=== PATIENT | female | born 1975 | race Caucasian/White ===

== ENCOUNTER 2016-11-28 08:19 | Emergency (ER) | payer SELFPAY ==
[2016-11-28] MEDS ORDERED: IPRATROPIUM/ALBUTEROL (0.5MG/3MG) NEB INH ONE (08:29)
[2016-11-28] MEDS ORDERED: PREDNISONE 20 MG TAB PO ONE (08:29)
--- NOTE | 2016-11-28 08:35 | Emergency Department Record ---
History of Present Illness - General Chief Complaint: Cough Stated Complaint: COUGH Time Seen by Provider: 11/28/16 08:22 Source: Patient Mode of Arrival: Ambulatory Limitations: No limitations - History of Present Illness Initial Comments: 41 yo smoker presents with about one day of cough with yellow sputum and subjective fevers. No nausea, vomiting or diarrhea. No rash. She has a past history of vocal cord cancer S/P radiation. She denies a history of asthma or COPD but she has required breathing treatments with URI type symptoms in the past. She is in the process of stopping smoking. No other current symptoms. Her last treatment for the vocal cord cancer was april. She has had recent and consistent follow up with no signs of recurrence or complications. PCP [facility]. Complaint: Cough, Fever -: Hour(s) (24) Severity: Moderate Improves With: Nothing Worsens With: Nothing Associated Symptoms: Cough Treatments Prior to Arrival: None - Related Data Previous Rx's Medication Instructions Recorded Albuterol Sulfate [Proventil Hfa] 1 - 2 puff INH .EVERY 4-6 HOURS 11/28/16 PRN #1 inhaler Azithromycin [Zithromax] 250 mg PO DAILY #4 tablet 11/28/16 Ipratropium/Albuterol Sulfate 1 - 2 puff IH QID #1 inh 11/28/16 [Combivent] Prednisone [Prednisone 20Mg] 20 mg PO BID #10 tab 11/28/16 Allergies Allergy/AdvReac Type Severity Reaction Status Date / Time meperidine HCl [From Demerol] AdvReac Severe VOMITING Verified 11/28/16 08:33 Review of Systems Constitutional: Reports: Fever. Denies: Chills, Malaise, Weakness Eyes: Denies: Eye discharge, Eye pain, Photophobia ENT: Reports: Congestion. Denies: Ear pain, Throat pain Respiratory: Reports: Cough, Wheezes. Denies: Hemoptysis, Stridor Cardiovascular: Denies: Chest pain, Palpitations, Syncope Endocrine: Denies: Fatigue Gastrointestinal: Denies: Abdominal pain, Diarrhea, Nausea, Vomiting Genitourinary: Denies: Dysuria, Urgency Musculoskeletal: Denies: Arthralgia, Back pain, Myalgia, Neck pain Skin: Denies: Bruising, Change in color, Rash Neurological: Denies: Headache, Numbness, Weakness Psychiatric: Denies: Anxiety Hematological/Lymphatic: Denies: Easy bleeding, Easy bruising Physical Exam - General General Appearance: Alert, Oriented x3, Cooperative, No acute distress, Other ( Non labored, no conversational dyspnea, chronic whispery voice due to cancer treatment) Limitations: No limitations - Head Head exam: Normal inspection - Eye Eye exam: Normal appearance, PERRL. negative: Conjunctival injection, Periorbital swelling - ENT ENT exam: Normal exam, Mucous membranes moist, Normal external ear exam, Normal orophraynx, TM's normal bilaterally Ear exam: Normal external inspection. negative: External canal tenderness Nasal Exam: Normal inspection. negative: Discharge, Sinus tenderness Mouth exam: Normal external inspection, Tongue normal Throat exam: Normal inspection. negative: Tonsillar erythema, Tonsillar exudate - Neck Neck exam: Normal inspection, Full ROM. negative: Lymphadenopathy, Tenderness - Respiratory Respiratory exam: Decreased breath sounds, Prolonged expiratory (mild), Rhonchi (few scattered). negative: Accessory muscle use, Respiratory distress - Cardiovascular Cardiovascular Exam: Regular rate, Normal rhythm, Normal heart sounds - GI/Abdominal GI/Abdominal exam: Soft. negative: Tenderness - Rectal Rectal exam: Deferred - exam: Deferred - Extremities Extremities exam: Normal inspection. negative: Tenderness - Back Back exam: Reports: Normal inspection. Denies: CVA tenderness (R), CVA tenderness (L) - Neurological Neurological exam: Alert, Oriented X3. negative: Altered - Psychiatric Psychiatric exam: Normal affect. negative: Agitated, Anxious - Skin Skin exam: Dry, Intact, Normal color, Warm Course - Reevaluation(s) Reevaluation #1: Orders placed for Duoneb, Flu swab, Prednisone, CXR. 11/28/16 08:37 Reevaluation #2: The patient was checked after the Duoneb. She felt improved. RT provided spacer for inhaler as well. 11/28/16 09:00 The influenza panel was negative for A and B 11/28/16 09:09 The CXR was reviewed by me No acute infiltrate noted She will be treated with breathing treatments, steroids and antibiotics given her smoking history as this is similar to a COPD exacerbation even though she has no formal diagnosis of COPD. 11/28/16 09:15 Reevaluation #3: CXR read as no acute cardio pulmonary disease, bi apical scarring, old healed rib fractures, possible subglottic narrowing from radiation. The patient had a recent scope and has close follow up every 2 months. 11/28/16 09:27 Disposition Disposition: Discharge Clinical Impression: Bronchitis Disposition: Home, Self-Care Condition: (1) Good Instructions: Acute Bronchitis (ED), Wheezing (ED) Additional Instructions: Return in the next 24 hours if not improving Return sooner if worse Zithromax daily PRednisone twice daily Combivent every 4 hours as needed Prescriptions: Albuterol Sulfate [Proventil Hfa] 1 - 2 puff INH .EVERY 4-6 HOURS PRN #1 inhaler PRN Reason: Difficulty In Breathing Azithromycin [Zithromax] 250 mg PO DAILY #4 tablet Ipratropium/Albuterol Sulfate [Combivent] 1 - 2 puff IH QID #1 inh Prednisone [Prednisone 20Mg] 20 mg PO BID #10 tab Forms: Patient Portal Access Time of Disposition: 09:13 Quality - Quality Measures Quality Measures: N/A - Blood Pressure Screening Does Patient Have Any of the Following: No Blood Pressure Classification: Normal BP Reading Systolic Measurement: 108 Diastolic Measurement: 78 Screening for High Blood Pressure: < Normal BP, F/U Not Required > [G8783]
[2016-11-28 09:02] LABS: INFLUENZA A NEGATIVE (NEGATIVE); INFLUENZA B NEGATIVE (NEGATIVE)
[2016-11-28] MEDS ORDERED: AZITHROMYCIN 500 MG TABLET PO ONE (09:13)
--- NOTE | 2016-11-28 14:20 | RADIOLOGY REPORT ---
EXAM: CHEST, TWO VIEWS HISTORY: COUGH FOR ONE DAY. DIFFICULTY IN BREATHING. VOCAL CORD CARCINOMA WITH RADIATION THERAPY. TECHNIQUE: Upright PA and lateral views of the chest were obtained. Comparison: Two view chest radiographic examination dated 01/27/14. FINDINGS: The heart is not enlarged and the pulmonary vasculature is nondilated. Mild biapical lung scarring is present. The lungs and pleural spaces are otherwise clear. There is new deformity involving the lateral aspects of the right fifth and sixth ribs likely relating to healed fractures. There are mild degenerative changes of the spine. There is equivocal symmetric narrowing of the immediate subglottic airway. IMPRESSION: 1. NO RADIOGRAPHIC EVIDENCE OF ACUTE CARDIOPULMONARY DISEASE. 2. MINOR BIAPICAL LUNG SCARRING. 3. DEFORMITIES OF THE LATERAL RIGHT FIFTH AND SIXTH RIBS SUGGESTED LIKELY RELATING TO OLD HEALED FRACTURES. THESE ARE NEW SINCE 01/27/14. 4. APPARENT SLIGHT SYMMETRIC NARROWING OF THE IMMEDIATE SUBGLOTTIC AIRWAY. THIS MAY RELATE TO POST RADIATION THERAPY. JOB NUMBER: [id number] [facility]
== END 2016-11-28 09:25 | disposition home or self-care (01) ==
LOC: ER 08:19
DX: J20.9 Acute bronchitis, unspecified (principal); F17.210 Nicotine dependence, cigarettes, uncomplicated
CPT/HCPCS: 99283; 99284; 87400; 71020; 94640; J7512

== ENCOUNTER 2016-12-04 22:42 | Emergency (ER) | payer SELFPAY ==
[2016-12-04] MEDS: IPRATROPIUM/ALBUTEROL (0.5MG/3MG) NEB INH ONE (22:50)
[2016-12-04] MEDS: ALBUTEROL SULFATE (0.083%) 2.5 MG/3 ML NEB INH ONE (23:03)
[2016-12-04] MEDS: METHYLPREDNISOLONE PF 125MG/VIAL IVP ONE (23:04)
--- NOTE | 2016-12-04 23:17 | Emergency Department Record ---
History of Present Illness - General Chief Complaint: Shortness of breath Stated Complaint: TIA Time Seen by Provider: 12/04/16 22:54 Source: Patient Mode of Arrival: Ambulatory Limitations: No limitations - History of Present Illness Initial Comments: pt has sob, wheezing and cough. pt was here 6 days ago and was given a z-pack and steroids both of which ran out yesterday. she felt better but now feels worse. pt has a hx of vocal cord ca which is closely watched. she had radiation MD Complaint: Cough, Shortness of breath Onset/Timin -: Hour(s) Severity: Mild Severity scale (1-10): 4 Quality: Other Consistency: Constant Improves With: Bronchodilators, Rest, Upright position Worsens With: Coughing, Inspiration Known History Of: Other Associated Symptoms: Denies other symptoms Treatments Prior to Arrival: Bronchodilator - Related Data Home Oxygen Therapy: No Home Medications Medication Instructions Recorded Confirmed Last Taken Albuterol Sulfate [Proair Hfa] 1 puff INH ASDIR 12/04/16 12/04/16 Unknown Previous Rx's Medication Instructions Recorded Prednisone [Deltasone] 20 mg PO ASDIR #7 tablet 12/05/16 Allergies Allergy/AdvReac Type Severity Reaction Status Date / Time meperidine HCl [From Demerol] AdvReac Severe VOMITING Verified 12/04/16 22:45 Travel Screening - Travel/Exposure Within Last 30 Days Have you traveled within the last 30 days?: No - Travel/Exposure Within Last Year Have you traveled outside the [place] in the last year?: No - Additonal Travel Details Have you been exposed to anyone with a communicable illness?: No - Travel Symptoms Symptom Screening: None Review of Systems Reviewed: No additional complaints except as noted below Constitutional: Reports: As per HPI. Denies: Chills, Fever, Malaise, Night sweats, Weakness, Weight change Eyes: Reports: As per HPI. Denies: Eye discharge, Eye pain, Photophobia, Vision change ENT: Reports: As per HPI. Denies: Congestion, Dental pain, Ear pain, Epistaxis , Hearing loss, Throat pain Respiratory: Reports: As per HPI. Denies: Cough, Dyspnea, Hemoptysis, Stridor, Wheezes Cardiovascular: Reports: As per HPI. Denies: Arrhythmia, Chest pain, Dyspnea on exertion, Edema, Murmurs, Orthopnea, Palpitations, Paroxysmal nocturnal dyspnea, Rheumatic Fever, Syncope Endocrine: Reports: As per HPI. Denies: Fatigue, Heat or cold intolerance, Polydipsia, Polyuria Gastrointestinal: Reports: As per HPI. Denies: Abdominal pain, Constipation, Diarrhea, Hematemesis, Hematochezia, Melena, Nausea, Vomiting Genitourinary: Reports: As per HPI. Denies: Abnormal menses, Discharge, Dyspareunia, Dysuria, Frequency, Hematuria, Incontinence, Retention, Urgency Musculoskeletal: Reports: As per HPI. Denies: Arthralgia, Back pain, Gout, Joint swelling, Myalgia, Neck pain Skin: Reports: As per HPI. Denies: Bruising, Change in color, Change in hair/ nails, Lesions, Pruritus, Rash Neurological: Reports: As per HPI. Denies: Abnormal gait, Confusion, Headache, Numbness, Paresthesias, Seizure, Tingling, Tremors, Vertigo, Weakness Psychiatric: Reports: As per HPI. Denies: Anxiety, Auditory hallucinations, Depression, Homicidal thoughts, Suicidal thoughts, Visual hallucinations Hematological/Lymphatic: Reports: As per HPI. Denies: Anemia, Blood Clots, Easy bleeding, Easy bruising, Swollen glands Past Medical History - SOCIAL HISTORY Smoking Status: Light tobacco smoker (<10/day) Drug Use: Occasional - RESPIRATORY Hx Bronchitis: Yes - CARDIOVASCULAR Hx Cardio Disorders: No - NEURO Hx Neuro Disorders: No - GI Hx GI Disorders: No - Hx Genitourinary Disorders: No - ENDOCRINE Hx Diabetes: No Hx Thyroid Disease: No - MUSCULOSKELETAL Hx Musculoskeletal Disorders: No - PSYCH Hx Psych Problems: No - HEMATOLOGY/ONCOLOGY Hx Cancer: Yes (01/2016) Hx Radiation Therapy: (04/28/2016) Family Medical History Any Significant Family History?: No Hx Cancer: Father Hx HTN: Father, Mother Physical Exam - General General Appearance: Alert, Oriented x3, Cooperative, Mild distress - Head Head exam: Normal inspection - Eye Eye exam: Normal appearance, PERRL, EOMI Pupils: Normal accommodation - ENT ENT exam: Normal exam, Mucous membranes moist, Normal external ear exam, Normal orophraynx, TM's normal bilaterally Ear exam: Normal external inspection. negative: External canal tenderness Nasal Exam: Normal inspection. negative: Discharge, Sinus tenderness Mouth exam: Normal external inspection, Tongue normal, Other (hoarse) Teeth exam: Normal inspection. negative: Dental caries Throat exam: Normal inspection. negative: Tonsillar erythema, Tonsillar exudate - Neck Neck exam: Normal inspection, Full ROM. negative: Tenderness - Respiratory Respiratory exam: Wheezes. negative: Respiratory distress - Cardiovascular Cardiovascular Exam: Regular rate, Normal rhythm, Normal heart sounds - GI/Abdominal GI/Abdominal exam: Soft, Normal bowel sounds. negative: Tenderness - Rectal Rectal exam: Deferred - exam: Deferred - Extremities Extremities exam: Normal inspection, Full ROM, Normal capillary refill. negative: Tenderness - Back Back exam: Reports: Normal inspection, Full ROM. Denies: Muscle spasm, Rash noted, Tenderness - Neurological Neurological exam: Alert, CN II-XII intact, Normal gait, Oriented X3 - Psychiatric Psychiatric exam: Normal affect, Normal mood - Skin Skin exam: Dry, Intact, Normal color, Warm Course Vital Signs 12/04/16 12/04/16 22:50 23:03 Temperature 97.9 F Pulse Rate 73 84 Pulse Rate [ 80 Pulse Ox Probe] Respiratory 20 20 Rate Blood Pressure 143/99 [Left Arm] Pulse Ox 96 - Reevaluation(s) Reevaluation #1: 12/05/16 00:01 pt feels much better. no wheezing Disposition Disposition: Discharge Clinical Impression: Reactive airway disease with acute exacerbation Qualifiers: Asthma severity: moderate persistent Qualified Code(s): J45.41 - Moderate persistent asthma with (acute) exacerbation Disposition: Home, Self-Care Condition: (1) Good Instructions: Wheezing (ED), Reactive Airways Disease (ED) Additional Instructions: follow up with family doctor. return sooner if worse. Prescriptions: Prednisone [Deltasone] 20 mg PO ASDIR #7 tablet Forms: Patient Portal Access Quality - Quality Measures Quality Measures: N/A - Blood Pressure Screening Does Patient Have Any of the Following: No Blood Pressure Classification: Hypertensive Reading Systolic Measurement: 143 Diastolic Measurement: 99 Screening for High Blood Pressure: < Pre-Hypertensive BP, F/U Documented > [ G8950] Pre-Hypertensive Follow-up Interventions: Follow-up with rescreen every year.
--- NOTE | 2016-12-05 13:19 | RADIOLOGY REPORT ---
EXAM: CHEST, TWO VIEWS HISTORY: DIFFICULTY IN BREATHING. TECHNIQUE: Frontal and lateral views of the chest were performed. FINDINGS: The heart size is normal. The lung rodriguez are clear. The osseous structures are normal. IMPRESSION: NEGATIVE CHEST EXAMINATION. JOB NUMBER: [id number] [facility]
== END 2016-12-05 00:23 | disposition home or self-care (01) ==
LOC: ER 22:42
DX: J45.41 Moderate persistent asthma with (acute) exacerbation (principal)
CPT/HCPCS: 71020; 94640; 96374; 99284; J2930; J7613

== ENCOUNTER 2016-12-25 13:04 | Emergency (ER) | payer SELFPAY ==
--- NOTE | 2016-12-25 13:33 | Emergency Department Record ---
History of Present Illness - General Chief Complaint: Cough Stated Complaint: COUGH,SORE THROAT,VOMITTING,DIARRHEA,NO ENERGY Time Seen by Provider: 12/25/16 13:19 Source: Patient Mode of Arrival: Ambulatory Limitations: No limitations - History of Present Illness Initial Comments: The patient is here due to a cough and congestion with mild SOB for one day. She has recently been diagnosed with COPD and has stopped smoking recently also. Today she has had mild vomiting and diarrhea but is better now and is no longer nauseated. The patient does have a hx of recentl vocal chord CA S/P XRT. She has a chronic raspy voice and stridorous breathing and is at baseline presently. The patient also has been very fatigued. MD Complaint: Cough, Nasal congestion, Rhinorrhea, Sore throat Onset/Timin -: Month(s) Severity scale (1-10): 6 Consistency: Constant - Related Data Previous Rx's Medication Instructions Recorded Doxycycline Monohydrate [Mondoxyne 100 mg PO BID #20 capsule 12/25/16 Nl] Ondansetron [Zofran Odt] 4 mg SL .Q4-6H PRN #12 tab.rapdis 12/25/16 Prednisone [Prednisone 20Mg] 20 mg PO ASDIR #15 tab 12/25/16 Allergies Allergy/AdvReac Type Severity Reaction Status Date / Time meperidine HCl [From Demerol] AdvReac Severe VOMITING Unverified 12/13/16 09:46 Travel Screening - Travel/Exposure Within Last 30 Days Have you traveled within the last 30 days?: No Review of Systems Constitutional: Reports: Malaise. Denies: Chills, Fever Eyes: Denies: Eye discharge ENT: Reports: Congestion Respiratory: Reports: Cough, Dyspnea, Stridor (chronic.). Denies: Hemoptysis, Wheezes Cardiovascular: Denies: Chest pain Past Medical History - SOCIAL HISTORY Smoking Status: Former smoker - RESPIRATORY Hx Respiratory Disorders: Yes Hx Bronchitis: Yes Hx COPD: Yes - CARDIOVASCULAR Hx Cardio Disorders: No - NEURO Hx Neuro Disorders: No - GI Hx GI Disorders: No - Hx Genitourinary Disorders: No - ENDOCRINE Hx Endocrine Disorders: No - MUSCULOSKELETAL Hx Musculoskeletal Disorders: No - PSYCH Hx Psych Problems: No - HEMATOLOGY/ONCOLOGY Hx Hematology/Oncology Disorders: Yes Hx Cancer: Yes (01/2016) Hx Radiation Therapy: (04/28/2016) Family Medical History Any Significant Family History?: Yes Hx Cancer: Father Hx HTN: Father, Mother Physical Exam - General General Appearance: Alert, Oriented x3, Cooperative, No acute distress - Head Head exam: Atraumatic, Normocephalic, Normal inspection - Eye Eye exam: Normal appearance, PERRL - ENT ENT exam: negative: Normal exam, TM's normal bilaterally (The TM's are very difficult to visualize due to angled canals and cerumen.) Throat exam: Tonsillar erythema. negative: Normal inspection, Tonsillomegaly, Tonsillar exudate - Neck Neck exam: Normal inspection, Full ROM. negative: Lymphadenopathy, Meningismus , Tenderness - Respiratory Respiratory exam: Normal lung sounds bilaterally. negative: Accessory muscle use, Chest wall tenderness, Decreased breath sounds, Respiratory distress - Cardiovascular Cardiovascular Exam: Regular rate, Normal rhythm, Normal heart sounds - GI/Abdominal GI/Abdominal exam: Soft, Normal bowel sounds. negative: Tenderness - Extremities Extremities exam: Normal inspection, Full ROM, Normal capillary refill. negative: Tenderness - Neurological Neurological exam: Alert. negative: Motor sensory deficit Course Vital Signs 12/25/16 13:10 Temperature 98.2 F Pulse Rate 91 H Respiratory 22 Rate Blood Pressure 130/87 Pulse Ox 97 - Reevaluation(s) Reevaluation #1: The patient is doing better at this time. Her nausea has resolved and she is drinking normally. She also denies any SOB or TIA presently and is speaking in full sentences with no difficulty. 12/25/16 14:22 Reevaluation #2: The patient is doing very well at this time. She denies any TIA or SOB and is up walking with no difficulty breathing or dyspnea. I did explain to the patient her xrays do not demonstrate any significant abnormality but her Liver tests do have a very slightly elevated alk phos and Tbili. The patient is instructed to F/U with her PCP for recheck of the lab work. 12/25/16 14:35 Medical Decision Making - Data Complexity MDM Data: Labs Ordered and/or Reviewed, X-Ray Ordered and/or Reviewed - Lab Data Result diagrams: 12/25/16 13:35 12/25/16 13:35 - Radiology Data Radiology results: Report reviewed (CXR: Neg ST Neck: Neg.) Disposition Disposition: Discharge Clinical Impression: Reactive airway disease with acute exacerbation Qualifiers: Asthma severity: mild Asthma persistence: intermittent Qualified Code(s): J45.21 - Mild intermittent asthma with (acute) exacerbation Disposition: Home, Self-Care Condition: (1) Good Instructions: COPD (Chronic Obstructive Pulmonary Disease) (ED) Additional Instructions: Please continue your regular medicines and add the Doxycycline and Prednisone as directed. Please use the Zofran for nausea. Please see Denise Curry for recheck later this week and see Dr. Zavala also for your throat issue. Prescriptions: Doxycycline Monohydrate [Mondoxyne Nl] 100 mg PO BID #20 capsule Ondansetron [Zofran Odt] 4 mg SL .Q4-6H PRN #12 tab.rapdis PRN Reason: Nausea Prednisone [Prednisone 20Mg] 20 mg PO ASDIR #15 tab Forms: Patient Portal Access Time of Disposition: 14:39 Quality - Quality Measures Quality Measures: N/A - Blood Pressure Screening View Details: Yes Does Patient Have Any of the Following: No Blood Pressure Classification: Pre-Hypertensive BP Reading Systolic Measurement: 123 Diastolic Measurement: 87 Screening for High Blood Pressure: < Pre-Hypertensive BP, F/U Documented > [ G8950] Pre-Hypertensive Follow-up Interventions: Referral to alternative/primary care provider.
[2016-12-25] MEDS: IPRATROPIUM/ALBUTEROL (0.5MG/3MG) NEB INH ONE (13:34)
[2016-12-25 13:44] LABS: BASO % 0.4 % (0-6); EOS % 0.9 % (0-6); GRAN % 77.6 % (47-80); HEMATOCRIT 40.5 % (35.0-47.0); HEMOGLOBIN 13.5 gm/dl (11.6-16.0); LYMPH % 13.5 % (16-45); MEAN CELL VOLUME 86.5 fl (81-97); MEAN CORPUSCULAR HEMOGLOBIN 28.8 pg (27-33); MEAN CORPUSCULAR HGB CONC 33.3 g/dl (32-36); MEAN PLATELET VOLUME 9.7 fl (7.4-10.4); MONO % 7.6 % (0-9); PLATELET COUNT 287 K/uL (130-400); RED BLOOD COUNT 4.68 M/uL (3.80-5.40); RED CELL DISTRIBUTION WIDTH 12.4 % (11.5-14.5); WHITE BLOOD COUNT W/O DIFF 7.9 K/uL (4.2-12.2)
[2016-12-25 14:10] LABS: ALB/GLOB RATIO 1.3 (1.1-1.8); ALBUMIN 4.3 g/dL (4.0-5.0); ALKALINE PHOSPHATASE 117 U/L (35-104); ALT/SGPT 9 U/L (<33); AST/SGOT 12 U/L (10.0-35.0); BLOOD UREA NITROGEN 7 mg/dL (6-20); CREATININE 0.5 mg/dL (0.5-0.9); EST GLOMERULAR FILTRATION RATE > 60 mL/min; GLUCOSE,RANDOM 90 mg/dL (74-109); TOTAL PROTEIN 7.6 g/dL (6.6-8.7)
[2016-12-25] MEDS: ONDANSETRON 4 MG ODT TABLET SL ONE (14:17)
[2016-12-25] MEDS: PREDNISONE 20 MG TAB PO ONE (14:27)
[2016-12-25] MEDS: DOXYCYCLINE HYCLATE 100 MG CAPSULE PO ONE (14:27)
--- NOTE | 2016-12-27 11:01 | RADIOLOGY REPORT ---
EXAM: CHEST, TWO VIEWS HISTORY: NECK PAIN, SORE THROAT, COUGH. TECHNIQUE: PA and lateral views of the chest were obtained. Comparison: Two view chest 12/04/16. FINDINGS: The heart is not enlarged. The lungs appear expanded with no acute infiltrate seen. No pleural effusion or pneumothorax evident. Minor spurring in the spine. IMPRESSION: MINOR SPURRING IN THE SPINE. NO ACUTE INFILTRATE IDENTIFIED. JOB NUMBER: [id number] [facility]
--- NOTE | 2016-12-27 11:05 | RADIOLOGY REPORT ---
EXAM: SOFT TISSUE NECK HISTORY: HISTORY OF VOCAL CORD CANCER WITH RADIATION THERAPY, NOW NECK PAIN WITH SORE THROAT AND HOARSE VOICE. TECHNIQUE: AP and lateral views of the neck were obtained for purposes of soft tissue evaluation. Comparison: No prior soft tissue neck study. FINDINGS: The epiglottis appears of normal size. No definite abnormal distention of the hypopharynx identified. On the lateral view the subglottic airway appears well maintained although on the AP view there may be some mild tapering in the region of the conus elasticus. No prevertebral soft tissue swelling evident. The cervical intervertebral disk space is maintained. IMPRESSION: 1. THERE MAY BE MILD NARROWING IN THE REGION OF THE CONUS ELASTICUS ON THE AP VIEW. 2. THE SOFT TISSUES OF THE NECK APPEAR OTHERWISE ESSENTIALLY NEGATIVE. JOB [facility]BER: [id number] [facility]
== END 2016-12-25 14:52 | disposition home or self-care (01) ==
LOC: ER 13:04
DX: J44.9 Chronic obstructive pulmonary disease, unspecified (principal); J45.20 Mild intermittent asthma, uncomplicated; Z87.891 Personal history of nicotine dependence; R06.02 Shortness of breath; R19.7 Diarrhea, unspecified; R11.2 Nausea with vomiting, unspecified; R53.83 Other fatigue
CPT/HCPCS: 99283; 99284; 82248; 85025; 86140; 80053; 71020; 70360; 94640; J7512

== ENCOUNTER 2018-03-25 07:26 | Day surgery (SDC) | payer MEDICAID ==
[2018-03-25] MEDS ORDERED: PROPOFOL 10 MG/ML VIAL IV ONE (07:27)
[2018-03-25] MEDS ORDERED: LIDOCAINE 2% MDV (20MG/ML) 20ML VIAL IV ONE (07:27)
--- NOTE | 2018-03-27 15:51 | Operative Note ---
DATE OF SURGERY: 03/25/2018 Surgeon: Graham Rivas D.O. Referring physician: Sangita Guerrero N.P. PREOPERATIVE DIAGNOSIS: Reflux. POSTOPERATIVE DIAGNOSIS: Reflux with antritis. OPERATION: EGD WITH BIOPSY. Anesthesia: Propofol. PROCEDURE: The patient is a 42-year-old female who was brought to the endoscopy suite and placed in the supine position. Appropriate monitoring was placed, including nasal O2, pulse oximetry, and blood pressure cuff. The patient was rotated into the left lateral position. A bite block was inserted. Propofol anesthesia was titrated to effect. At this time, a well lubricated upper gastric scope was placed down the patient's oropharynx and passed down to the esophagus and the stomach. All parts of the stomach were seen, including fundus body, cardia, and antrum. The patient had antritis noted. Random biopsies were taken. The pylorus was cannulated and the first two parts of the duodenum were seen. These were grossly normal. The scope was withdrawn back in the stomach, retroflexion was done. There was no hernia noted. The fundus and cardia were normal. The scope was then withdrawn back to the GE junction, this was grossly normal as well. At this time, the gas was evacuated, the scope was fully removed. FINDINGS AT THE TIME OF ENDOSCOPY: Scattered antritis. I would recommend continued acid reduction medication, lifestyle changes, and call me if any issues. We will await histopathology as well. Thank you for this referral. [facility]
== END 2018-03-25 09:24 | disposition home or self-care (01) ==
LOC: HOP 07:26
PROVIDERS: ATTEND Surgery
DX: K21.9 Gastro-esophageal reflux disease without esophagitis (principal); R12 Heartburn; K29.60 Other gastritis without bleeding